=== PATIENT | male | born 1960 | race Caucasian/White ===

== ENCOUNTER → 2017-02-01 | Outpatient (CLI) | payer OTHER ==
--- NOTE | 2017-02-02 09:46 | MR ---
EXAMINATION: MRI of the right shoulder HISTORY: Pain COMPARISON: None TECHNIQUE: Multiplanar and multisequence images obtained of the right shoulder without contrast. FINDINGS: There is a type II acromion. 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 Ther e is a full-thickness tear of the supraspinatus tendon with approximately 2.3 cm of retraction. Infr aspinatus tendon appears grossly intact. The teres minor tendon is normal. The long head biceps tend on is partially present within the bicipital groove, however is not well visualized proximally. Ther e is increased signal within the overlying subscapularis tendon. There is likely an anterior labral tear. The glenohumeral articular cartilage appears mildly thinned. The inferior glenohumeral ligamen t appears mildly indistinct along the humeral attachment. There is a small joint effusion. No suspic ious bone marrow signal changes. IMPRESSION: 1. Full-thickness supraspinatus tendon tear with retraction. 2. Long head biceps tendon tear proximally. 3. Moderate subscapularis tendinopathy. 4. Probable anterior labral tear. 5. Probable sprain of the inferior glenohumeral ligament. 6. Joint effusion with extension to the subdeltoid bursa. 7. Mild acromioclavicular osteoarthritic changes.
== END ==
LOC: MW.MRI 13:56
PROVIDERS: ATTEND Nurse Practitioner Family
DX: M25.511 Pain in right shoulder (principal); M75.121 Complete rotator cuff tear or rupture of right shoulder, not specified as traumatic; S46.111A Strain of muscle, fascia and tendon of long head of biceps, right arm, initial encounter; M75.81 Other shoulder lesions, right shoulder; M25.411 Effusion, right shoulder; X58.XXXA Exposure to other specified factors, initial encounter
CPT/HCPCS: 73221-26-RT; 73221-RT